=== PATIENT | male | born 1945 | race Native Hawaiian/Other Pacific Islander ===

== ENCOUNTER 2017-10-05 10:10 | Outpatient (CLI) | payer OTHER ==
[~2017-10-05 10:10] MED LIST: ACID CONTROL MA20 MG OR; ACID REDUCER OR; ASCORBIC ACD500 MG OR; ASPIRIN LOW STR81 MG PO; ATEN25TA21 PO; CLOP75TA2 PO; FORTAMET1000 MG PO; GLIP10TA55 PO; IRBE150T4 PO; MOBIC15 MG PO; ONGLYZA5 MG OR
[2017-10-05 10:29] LABS: PLATELET COUNT 260 K/uL (142-355)
== END 2017-10-05 21:40 | disposition home or self-care (01) ==
LOC: LABW 10:10
PROVIDERS: Internal Medicine Cardiovascular Disease
DX: Z79.899 Other long term (current) drug therapy (principal); Z51.81 Encounter for therapeutic drug level monitoring
CPT/HCPCS: 36415; 85027; 85651

== ENCOUNTER 2019-02-05 20:47 | Emergency (ER) | payer BC ==
[~2019-02-05] VITALS: Ht 170.2 cm; Wt 138.8 kg
[2019-02-05] MEDS ORDERED: JARDIANCE10 MG PO (21:18)
[2019-02-05] MEDS ORDERED: TRAMADOL HYDROC50 MG PO (21:19)
[2019-02-05] MEDS ORDERED: AMIODARONE HYD200 MG PO (21:19)
[2019-02-05] MEDS ORDERED: MOBIC15 MG PO (21:19)
[2019-02-05] MEDS ORDERED: GLIP10TA55 PO (21:20)
[2019-02-05] MEDS ORDERED: METFORMIN ER1000 MG PO (21:20)
[2019-02-05] MEDS ORDERED: ONGLYZA PO (21:24)
[2019-02-05] MEDS ORDERED: EUTHYROX50 MCG PO (21:24)
[2019-02-05] MEDS ORDERED: HYDR25TA60 PO (21:25)
[2019-02-05] MEDS ORDERED: AVAPRO300 MG PO (21:25)
[2019-02-05] MEDS ORDERED: RANO500T PO (21:26)
[2019-02-05] MEDS ORDERED: PRAS10TA PO (21:26)
[2019-02-05] MEDS ORDERED: ELIQUIS STARTER5 MG PO (21:28)
[2019-02-05] MEDS ORDERED: PRAVACHOL20 MG PO (21:28)
[2019-02-05] MEDS ORDERED: AMLODIPINE BESYLATE PO (21:30)
[2019-02-05] MEDS ORDERED: NITROSTAT0.4 MG SL (21:31)
[2019-02-05] MEDS ORDERED: ROPINIROLE0.25 MG PO (21:32)
[2019-02-05] MEDS ORDERED: ACID REDUCER75 MG PO (21:32)
[2019-02-05] MEDS ORDERED: ASCO500T18 PO (21:33)
[2019-02-05] MEDS ORDERED: CO Q-10100 MG PO (21:33)
[2019-02-05] MEDS ORDERED: ASPIRIN 81 LOW81 MG PO (21:33)
[2019-02-05] MEDS ORDERED: [UNRECOGNIZED DRUG - OTHER] PO (21:34)
[2019-02-05] MEDS ORDERED: MULTI VITAMIN1 TAB PO (21:34)
[2019-02-05] MEDS ORDERED: BIOTIN1 MG PO (21:35)
[2019-02-05] MEDS ORDERED: TYLENOL ARTHRITIS PO (21:35)
[2019-02-05 22:37] LABS: PLATELET COUNT 290 K/uL (142-355)
[2019-02-06 00:07] VITALS: BP 169/74; TEMP 97.2
== END 2019-02-06 00:15 | disposition home or self-care (01) ==
LOC: ED 20:47
PROVIDERS: Internal Medicine
DX: E86.0 Dehydration (principal); R51 Headache; R11.2 Nausea with vomiting, unspecified; J32.9 Chronic sinusitis, unspecified
CPT/HCPCS: 36415; 80053; 82150; 83690; 85027; 96360; 96361; 96375; 99284; J0360; J0696; J2270; J2405

== ENCOUNTER 2021-12-23 11:09 | Outpatient (CLI) | payer OTHER ==
[~2021-12-23 11:09] MED LIST changes: +ACID REDUCER75 MG PO; +AMIODARONE HYD200 MG PO; +AMLODIPINE BESYLATE PO; +ASCO500T18 PO; +ASPIRIN 81 LOW81 MG PO; +AVAPRO300 MG PO; +BIOTIN1 MG PO; +CO Q-10100 MG PO; +ELIQUIS STARTER5 MG PO; +EUTHYROX50 MCG PO; +HYDR25TA60 PO; +JARDIANCE10 MG PO; +METFORMIN ER1000 MG PO; +MULTI VITAMIN1 TAB PO; +NITROSTAT0.4 MG SL; +ONGLYZA PO; +PRAS10TA PO; +PRAVACHOL20 MG PO; +RANO500T PO; +ROPINIROLE0.25 MG PO; +TRAMADOL HYDROC50 MG PO; +TYLENOL ARTHRITIS PO; +[UNRECOGNIZED DRUG - OTHER] PO
== END 2021-12-23 19:18 | disposition home or self-care (01) ==
LOC: US 11:09
PROVIDERS: ATTEND Internal Medicine
DX: R22.42 Localized swelling, mass and lump, left lower limb (principal); I99.8 Other disorder of circulatory system

== ENCOUNTER 2022-01-06 08:48 | Outpatient (CLI) | payer OTHER | END 2022-01-06 19:09 | disposition home or self-care (01) | LOC: LABW 08:48 | PROVIDERS: ATTEND Podiatrist | DX: M10.071 Idiopathic gout, right ankle and foot (principal); M10.072 Idiopathic gout, left ankle and foot | CPT/HCPCS: 36415; 84550 ==

== ENCOUNTER 2022-02-18 09:50 | Outpatient (CLI) | payer OTHER | END 2022-02-18 19:05 | disposition home or self-care (01) | LOC: US 09:50 | PROVIDERS: ATTEND Internal Medicine Cardiovascular Disease | DX: I87.2 Venous insufficiency (chronic) (peripheral) (principal); I73.9 Peripheral vascular disease, unspecified ==

== ENCOUNTER 2022-02-19 10:19 | Outpatient (CLI) | payer OTHER | END 2022-02-19 20:52 | disposition home or self-care (01) | LOC: US 10:19 | PROVIDERS: ATTEND Internal Medicine Cardiovascular Disease | DX: I73.9 Peripheral vascular disease, unspecified (principal) ==

== ENCOUNTER 2022-07-21 12:15 | Outpatient (CLI) | payer OTHER | END 2022-07-21 19:03 | disposition home or self-care (01) | LOC: RAD 12:15 | PROVIDERS: ATTEND Internal Medicine | DX: M79.641 Pain in right hand (principal); M25.531 Pain in right wrist; M79.631 Pain in right forearm; W19.XXXA Unspecified fall, initial encounter ==